=== PATIENT | female | born 1965 | race Caucasian/White ===

== ENCOUNTER 2019-01-23 14:33 | Emergency (ER) | payer BC, SELFPAY ==
[2019-01-23 14:38] VITALS: BP 114/81; PULSE 73; RESP 20; TEMP 36.7; O2SAT 99
--- NOTE | 2019-01-23 15:01 | ED.GENADUL_ITS ---
Discharge Plan Disposition Patient Disposition: HOME Condition: Fair Discharge Details Chief Complaint: Orthopedic Clinical Impression: Distal radius fracture, left, Closed fracture of coccyx Primary Care Provider: [facility],Local ED Provider: [facility] Home Meds and New Rx's Prescriptions: No Action No Known Home Meds RF: 0 Discharge Instructions Instructions: Wrist Fracture in Adults (ED) Additional Instructions: Encourage rest, ice, elevation. Tylenol and/or ibuprofen as needed for discomfort. Please avoid any heavy lifting. Please call orthopedics and/or primary care to discuss referral tomorrow and schedule follow-up appointment. It appears that your wrist will need surgical intervention initially to be completed within the next 1 to 2 weeks per orthopedics recommendations. If you develop new or worsening symptoms please seek care urgently once again. Stand Alone Forms: Work Release Discharge Data Discharge Date/Time-TO BE ENTERED AT DEPARTURE: 01/23/19 16:57 Medical Decision Making <SOLE Martinez - Last Filed: 01/25/19 17:36> Patient provided Tylenol initially after her evaluation. Patient with a left wrist injury with deformity present. X-rays pending. Signed out pending x-ray evaluation. <SOLE Whitfield - Last Filed: 01/23/19 16:52> Care transition to myself from SOLE Ortiz, with chief complaint of left wrist pain and buttock pain. Please see her note. I reviewed the images and patient does have a comminuted left distal radius fracture that appears to be intra-articular. I am also concerned for a coccyx fracture as there is angulation on the lateral view. Still awaiting radiology result. Consult with Dr. Ugalde with orthopedics regarding the patient's wrist. He advised the patient will need surgical intervention and advised splinting her for the time being with plan to follow-up. Patient was splinted with plaster. Capillary refill remains intact. She feels comfortable in the splint. We discussed pain management techniques and she declines any prescription analgesics at this time and prefers Tylenol and ibuprofen. We will give her a sling to help with elevation. Encouraged floyd. She will contact primary care and orthopedics tomorrow to schedule follow-up appointment. Advise she seek care urgently once again with any new or worsening symptoms. All other questions and concerns were addressed and she is in agreement this plan. We will give work note at patient's request. HPI <SOLE Martinez - Last Filed: 01/25/19 17:36> General Date/Time Provider Initiated Documentation: 01/23/19 14:36 . HPI Narrative: Patient presents after a fall off of a porch down 2 steps to a stone path. Patient denies striking head neck or back. Patient denies loss of consciousness, headache, vision change, blurred vision, tinnitus. Patient did report initial dizziness and nausea. Dizziness has resolved, nausea mildly persist. Patient is not concerned with head injury. Has no evidence of head trauma. Patient primarily presents with a concern of left wrist pain and deformity. Pain with any range of motion of left wrist. Patient denies chest pain, difficulty breathing or shortness of breath or wheezing. No pain with deep breathing. Denies abdominal pain. Patient does report mild buttocks te nderness and pain as she fell striking the left side of her buttocks. Patient denies specific hip pain. Full range of motion of legs. Able to ambulate without difficulty. No limping gait. No numbness, tingling or weakness of arms or legs. No other concerns or complaints at this time. Injury occurred approximately 1-2 o'clock this afternoon. Related Data Home Medications Medication Instructions Recorded Confirmed Unknown [No Known Home Meds] 01/23/19 01/23/19 Allergies Allergy/AdvReac Type Severity Reaction Status Date / Time Penicillins Allergy Skin Rash Unverified 01/23/19 14:40 General Stated Complaint: Orthopedic DILLON: 3 Review of Systems <SOLE Martinez - Last Filed: 01/25/19 17:36> Review of Systems Narrative: CONSTITUTIONAL: The patient denies fevers, chills. EYES: Denies vision changes, blurry vision, or eye pain. ENT: Denies hearing changes, tinnitus, vertigo, sore throat. CARDIAC: Denies chest pain, SOB. RESPIRATORY: Denies cough, sputum. Denies difficulty breathing. GASTROINTESTINAL: Denies abdominal pain, changes in bowel, vomiting or nausea. GENITOURINARY: Denies dysuria, or frequency of urination. MUSCULOSKELETAL: Wrist pain, no changes in gait changes. NEUROLOGIC: Denies headaches, Denies focal weakness. Denies numbness. INTEGUMENT: Denies rashes. PSYCHIATRIC: Denies behavior changes. Denies anxiety or depression. ENDOCRINOLOGY: Denies fatigue. PSYCHIATRY: Denies depression, agitation or anxiety PFS <SOLE Martinez - Last Filed: 01/25/19 17:36> Social History Smoking/Tobacco Use Status: Current every day Tobacco Type: cigarettes Alcohol Intake: current Alcohol Intake frequency: holidays/special occasions only Substance use type: does not use Do you feel safe at home: Yes Do you feel safe in your relationship?: Yes Exam <SOLE Martinez - Last Filed: 01/25/19 17:36> Narrative Exam Narrative: CONST: Healthy appearing patient, in no acute distress. Well hydrated. Alert and alert. HENMT: Head nomocephalic, normal to inspection. Atraumatic. Hearing grossly normal. EYES: General normal appearance. Alignment normal. Eyelids normal. Conjunctiva normal. NECK: Normal visual inspection. FROM. Trachea midline. No Midline tenderness. CHEST: Normal insepection of the chest. No pain with palpation to the chest wall. RESP: Normal respiratory effort. Speaking full sentences. No cough. No audible wheezing. No retractions. CARDIO: No JVD. Neck back spine; no midline tenderness. No bony pain with palpation. No step- offs. MUSCULOSKELETAL: Normal Gait. No left shoulder pain with palpation of the c lavicle tenderness. No humeral tenderness. Minimal elbow tenderness with palpation. Mild pain with supination pronation of left elbow. No significant forearm tenderness. Obvious wrist deformity noted on the left with pain with light palpation through the radius and the ulnar. Mild dorsal hand pain with palpation. Radial pulse intact. Cap refill normal. Intact sensation distally. Straight leg raise intact bilaterally. No pain with flexion extension or internal/external rotation of hips bilaterally. No palpable hip tenderness. No femoral, knee, adrian, ankle or foot tenderness bilaterally. Abrasion noted to the lateral malleolus of the left ankle. Full range of motion and strength intact of lower legs. SKIN: Normal. Dry. No rashes. NEURO: Alert and awake. Speech clear. PSYCH: Normal affect. Cooperative. Course <SOLE Martinez - Last Filed: 01/25/19 17:36> Vital Signs Vital signs: Vital Signs Temperature 36.7 C 01/23/19 14:38 Pulse 73 01/23/19 14:38 Respiratory Rate 20 01/23/19 14:38 Blood Pressure 114/81 01/23/19 14:38 Pulse Oximetry 99 01/23/19 14:38 Temperature 36.7 C 01/23/19 14:38 Temperature Source Temporal Artery Scan 01/23/19 14:38 Pulse 73 01/23/19 14:38 Respiratory Rate 20 01/23/19 14:38 Respiratory Effort Non-Labored 01/23/19 14:50 Blood Pressure 114/81 01/23/19 14:38 Blood Pressure Position Sitting 01/23/19 14:38 Pulse Oximetry 99 01/23/19 14:38 Oxygen Delivery Method Room Air 01/23/19 14:38 Oxygen Flow Rate 0 01/23/19 14:38 Pain Level 8 01/23/19 14:44 Sign Out <SOLE Martinez - Last Filed: 01/25/19 17:36> Sign Out Data: Sign Out Comment: Send a pending x-ray evaluation of left arm and right pelvis Last updated by Genesis Arreola PA at 01/23/19 16:06
[2019-01-23] MEDS: Acetaminophen 500 MG TAB 1000 MG PO (15:02)
--- NOTE | 2019-01-23 16:01 | DI.RAD_ITS ---
EXAM: XR PELVIS AP INDICATION: pain, fall. COMPARISON: XR SACRUM COCCYX from 01/23/2019 TECHNIQUE: 2D digital imaging was performed. FINDINGS: There is a question regarding a subtle cortical discontinuity in the lower sacrum. No acutely displa matheus fractures are appreciated. There is no dislocation. IMPRESSION: Question subtle cortical discontinuity at the lower sacrum. This could be related to artifact from s uperimposition of structures. Could not exclude a small minimally displaced fracture. Correlation w ith the patient's symptomatology and if indicated a pelvic CT could be considered.
--- NOTE | 2019-01-23 16:01 | DI.RAD_ITS ---
EXAM: XR HAND LT COMPLETE INDICATION: pain, fall. COMPARISON: No exams were available for comparison TECHNIQUE: 2D digital imaging was performed. FINDINGS: Again noted is a fracture of the distal radius previously described. There is no evidence of an acut e fracture or dislocation involving the hand. IMPRESSION:
--- NOTE | 2019-01-23 16:01 | DI.RAD_ITS ---
EXAM: XR SACRUM COCCYX INDICATION: pain, fall. COMPARISON: XR PELVIS AP from 01/23/2019 TECHNIQUE: 2D digital imaging was performed. FINDINGS: Evaluation of the sacrum and coccyx reveals degenerative changes involving the lumbar vertebra. There is a subtle cortical discontinuity at the lower sacrum. No other acutely displaced fractures are beverley reciated. There is no dislocation. IMPRESSION: Summary: No cortical discontinuity.
--- NOTE | 2019-01-23 16:01 | DI.RAD_ITS ---
EXAM: XR ELBOW LT COMPLETE INDICATION: pain, injury. COMPARISON: No exams were available for comparison TECHNIQUE: 2D digital imaging was performed. FINDINGS: The bony structures are normal. The soft tissues are unremarkable. IMPRESSION: No acute abnormality is identified.
--- NOTE | 2019-01-23 16:02 | DI.RAD_ITS ---
EXAM: XR WRIST LT COMPLETE INDICATION: pain, injury. COMPARISON: No exams were available for comparison TECHNIQUE: 2D digital imaging was performed. FINDINGS: There is a comminuted overriding and intra-articular fracture of the distal radius with mild displace ment of the fracture fragments and volar angulation of the distal fragments of the hand. There is no evidence of a dislocation. Osteoarthritic changes involving the 1st carpal/metacarpal joint are nellie ntified. No other acutely displaced fractures are appreciated. There is no evidence of a dislocation . IMPRESSION:
[2019-01-23 16:52] VITALS: BP 125/75; PULSE 95
[2019-01-23 17:00] VITALS: BP 125/75; PULSE 95; RESP 20; O2SAT 99
--- NOTE | 2019-01-23 17:08 | DI.VRAD_ITS ---
EXAM: XR Sacrum and Coccyx, 2 or More Views EXAM DATE/TIME: 01/23/2019 4:02 PM CLINICAL HISTORY: 53 years old, female; Other: Pain fall TECHNIQUE: Imaging protocol: XR of the sacrum and coccyx, 2 or more views. COMPARISON: No relevant prior studies available. FINDINGS: Bones/joints: Mild degenerative changes of the lumbosacral vertebra. Very subtle cortical discontinuity at the lower sacrum on image 1 series 148. No other acutely displaced fractures are appreciated. No dislocation. Soft tissues: No acute soft tissue findings. Vasculature: There are numerous benign phleboliths in the pelvis. IMPRESSION: Very subtle cortical discontinuity at the lower sacrum , as detailed above. This could be related to artifact from superimposition of structures, however a small minimally displaced fracture is difficult to exclude. Consider correlation with point tenderness at this region or further evaluation with noncontrast pelvic CT if clinically warranted. Dictated and Authenticated by: Jayy Paniagua MD. Ordering:RITA Hurtado MD
--- NOTE | 2019-01-23 17:09 | DI.VRAD_ITS ---
EXAM: XR Left Elbow EXAM DATE/TIME: 01/23/2019 4:01 PM CLINICAL HISTORY: 53 years old, female; Other: Pain, injury TECHNIQUE: Imaging protocol: XR Left elbow. Views: 3 or more views. COMPARISON: No relevant prior studies available. FINDINGS: Bones/joints: Normal. Soft tissues: Normal. IMPRESSION: No acute findings. Dictated and Authenticated by: Jayy Paniagua MD. Ordering:RITA Hurtado MD
--- NOTE | 2019-01-23 17:11 | DI.VRAD_ITS ---
EXAM: XR Pelvis EXAM DATE/TIME: 01/23/2019 4:01 PM CLINICAL HISTORY: 53 years old, female; Other: Pain, fall TECHNIQUE: Imaging protocol: XR pelvis. Views: 1 or 2 view. COMPARISON: No relevant prior studies available. FINDINGS: Bones/joints: 1.3 cm lytic lesion with well-defined sclerotic borders at the left femoral head/neck favors a benign lesion. No acutely displaced fracture or dislocation is appreciated in this examination. Soft tissues: No significant soft tissue abnormality. Vasculature: There are numerous benign phleboliths in the pelvis. IMPRESSION: 1. Negative for acute skeletal pathology. 2. Please review the dedicated sacral films performed on the same date for other important findings. Dictated and Authenticated by: Jayy Paniagua MD. Ordering:RITA Hurtado MD
--- NOTE | 2019-01-23 17:15 | DI.VRAD_ITS ---
EXAM: XR Left Hand EXAM DATE/TIME: 01/23/2019 4:01 PM CLINICAL HISTORY: 53 years old, female; Other: Pain, fall TECHNIQUE: Imaging protocol: XR Left hand. Views: 3 or more views. COMPARISON: No relevant prior studies available. FINDINGS: Bones/joints: There is a comminuted, overriding, and intra-articular fracture of the distal radius with mild distraction of fracture fragments and volar angulation of the distal fragments and hand. No dislocation. Severe osteoarthritis of the first carpometacarpal joint, as manifested by significantly decreased joint space, subchondral sclerosis, and marginal osteophyte formation. No other acutely displaced fractures are appreciated. No dislocation. Soft tissues: There is soft tissue swelling about the wrist. IMPRESSION: Combination [place] and reverse Shoemaker fracture, as detailed above. Dictated and Authenticated by: Jayy Paniagua MD. Ordering:RITA Hurtado MD
--- NOTE | 2019-01-23 17:41 | DI.VRAD_ITS ---
EXAM: XR Left Wrist EXAM DATE/TIME: 01/23/2019 5:27 PM CLINICAL HISTORY: 53 years old, female; Other: Pain, injury TECHNIQUE: Imaging protocol: XR Left wrist. Views: 3 or more views. COMPARISON: No relevant prior studies available. FINDINGS: Bones/joints: There is a comminuted, overriding, and intra-articular fracture of the distal radius with mild distraction of fracture fragments and volar angulation of the distal fragments and hand. No dislocation. Severe osteoarthritis of the first carpometacarpal joint, as manifested by significantly decreased joint space, subchondral sclerosis, and marginal osteophyte formation. No other acutely displaced fractures are appreciated. No dislocation. Soft tissues: There is soft tissue swelling about the wrist. IMPRESSION: Combination [place] and reverse Shoemaker fracture, as detailed above. Dictated and Authenticated by: Jayy Paniagua MD. Ordering:RITA Hurtado MD
--- NOTE | 2019-02-11 08:49 | OCONE_ITS ---
Date of service: 01/23/19 Time of Service: 15:49 History of Present Illness History of Present Illness Chief Complaint: Left wrist fracture Narrative: Rima is a 53-year-old who fell off of a porch. She landed on outstretched left hand on onto her bottom. She initially has some nausea and vomiting. She had notable pain and felt something was not right with her left wrist. She presented to the emergency department he was diagnosed with a left wrist fracture. She denies any numbness or tingling. Her pain is currently controlled. She denies any loss of consciousness. She may have had some dizziness after the fall but no dizziness prior to the fall. She denies any loss of consciousness. She denies any numbness or tingling. Consult Reason Left wrist fracture Assessment and Plan Assessment and plan (1) Distal radius fracture, left: Status: Acute Assessment and plan: Rima is a 53-year-old who suffered a fall onto an outstretched left hand. She suffered a comminuted, intra-articular distal radius fracture. She works with her hands on a daily basis at [employer]. Given her young age, labor-intensive work, and the nature of the fracture, recommend operative fixation. I did discuss the role of a closed reduction and casting but given the intra-articular nature of the fracture and its displacement would recommend fixation. I reviewed the risk to include bleeding, infection, pain, stiffness, damage to nerves and vessels, damage to muscle tendons. She is not in this area and would like to try to have care closer to home. She does need to contact an local orthopedic provider soon as possible as these preferably get fixed within 2 weeks. Qualifiers: Encounter type: initial encounter Fracture type: closed Fracture morphology: other intra-articular Qualified Code(s): S52.572A - Other intraarticular fracture of lower end of left radius, initial encounter for closed fracture Review of Systems Review of Systems ROS Unobtainable: All systems reviewed & are unremarkable except as noted in HPI and below [facility] Medical History History of postoperative nausea and vomiting (Acute) Surgical History History of mandibular surgery (Acute) Broken jaw 1974 History of surgery (Acute) Bronchoscopy Hx of wisdom tooth extraction (Acute) Social History Smoking/Tobacco Use Status: Current every day Tobacco Type: cigarettes Years smoked: 25 Alcohol Intake: current Alcohol Intake frequency: holidays/special occasions only Drug use: Never Substance use type: does not use Current gender identity: female Do you feel safe at home: Yes Do you feel safe in your relationship?: Yes Exam Narrative Exam Narrative: Evaluation of left wrist shows some swelling and volar displacement of the wrist by a slight amount. There is some very mild ecchymosis. Sensation intact light touch over the medial radial, ulnar nerve. Palpable radial pulse. No pain with elbow range of motion. Intact AIN, PIN, ulnar nerve function. Results Last Vital Signs Temp 36.7 C 01/23/19 14:38 Pulse 95 H 01/23/19 17:00 Resp 20 01/23/19 17:00 BP 125/75 01/23/19 17:00 Pulse Ox 99 01/23/19 17:00 Imaging Imaging Studies: X-ray of the left wrist shows a volarly displaced intra- articular distal radius fracture with a separate radial styloid fragment
== END 2019-01-23 16:57 | disposition home or self-care (01) ==
PROVIDERS: Emergency Provider Physician Assistant
DX: S52.572A Other intraarticular fracture of lower end of left radius, initial encounter for closed fracture (principal); S32.2XXA Fracture of coccyx, initial encounter for closed fracture; R11.0 Nausea; W10.8XXA Fall (on) (from) other stairs and steps, initial encounter
CPT/HCPCS: 29125; 99253; 99284; 72170; 72220; 73080; 73110; 73130; 99282; L3650

== ENCOUNTER 2019-02-05 13:08 | Outpatient (CLI) | payer BC, SELFPAY ==
--- NOTE | 2019-02-05 12:56 | DI.RAD_ITS ---
EXAM: XR WRIST LT COMPLETE CLINICAL HISTORY: F/U FRACTURE. TECHNIQUE: 2D digital imaging was performed. COMPARISON: XR WRIST LT COMPLETE from 01/23/2019 FINDINGS: BONES: There has been no change in alignment of the comminuted, intra-articular fracture of the dista l left radius since 01/23/2019. JOINTS: Severe degenerative changes are again seen at the 1st carpometacarpal joint. SOFT TISSUE: There is soft tissue swelling about the wrist. The patient's wrist is in a cast. IMPRESSION: Stable distal left radial fracture.
== END 2019-02-05 13:28 ==
PROVIDERS: Visit Provider Student in an Organized Health Care Education/Training Program
DX: S52.572D Other intraarticular fracture of lower end of left radius, subsequent encounter for closed fracture with routine healing (principal); M18.12 Unilateral primary osteoarthritis of first carpometacarpal joint, left hand
CPT/HCPCS: 73110

== ENCOUNTER 2019-02-07 06:20 | Day surgery (SDC) | payer BC, SELFPAY ==
[2019-02-07] VITALS (7 sets, daily range): BP systolic 102–114; BP diastolic 52–93; PULSE 63–81; RESP 9–19; TEMP 36.3–36.7; O2SAT 94–97
[2019-02-07] MEDS: Lactated Ringers 1,000 ML 80 ML IV (07:00)
--- NOTE | 2019-02-07 07:12 | DI.RAD_ITS ---
EXAM: XR WRIST LT LIMITED INDICATION: LEFT DISTAL RADIUS FX. COMPARISON: XR WRIST LT COMPLETE from 02/05/2019 TECHNIQUE: 2D digital imaging was performed. FINDINGS: The patient is now open reduction and internal fixation of the distal left radial fracture. The alig nment appears near anatomic. FLUORO TIME: 57 sec, 0.3950 mGy
--- NOTE | 2019-02-07 07:23 | PDOC.DSDIS_ITS ---
Discharge Plan Disposition Patient Disposition: HOME Condition: Good Discharge Details Reason For Visit: Left distal radius fracture Attending Provider: Sinan Ugalde Primary Care Provider: ,Local Home Meds and New Rx's Prescriptions: New acetaminophen 500 mg tablet 500 mg PO Q6H PRN (Reason: pain) Qty: 60 RF: 2 ibuprofen 600 mg tablet 600 mg PO TID PRN (Reason: pain) Qty: 60 RF: 2 hydrocodone-acetaminophen [Vicodin] 5-300 mg tablet 1 tab PO Q6H PRN (Reason: post-operative pain) Qty: 12 RF: 0 Discharge Instructions Additional Instructions: Wrist Fracture Fixation Discharge Instructions Activity: You should keep the hand/wrist elevated as much as possible for the first few days. You may use the other fingers as tolerated but avoid trying to do too much too soon. You may perform light activities with the splint in place. Dressing/Cast: Your splint should stay in place at all times. Do NOT get it wet. You may loosen the MALI wrap if you feel it is too tight and then rewrap more loosely. Medications: - You should take Tylenol and Ibuprofen for baseline pain control. - You have been prescribed a stronger pain medication, Hydrocodone (Vicodin), for breakthrough pain. - You may apply ice over the wrist, just double bag so it doesn't get wet. Follow-up: 10-14 days Referrals: Sinan Ugalde MD [ [facility] STAFF PHYSICIAN] - Equipment/Supplies: Sling Activity:: Elevate Remove Dressings/Wound Care:: Do Not Remove Shower/Bathe:: Cover Diet:: As Tolerated Discharge Orders Discharge Orders: Discharge Order (Routine); Ordered 02/07/19 Ordered By: Sophie Panda DS: Diagnosis Discharge Diagnosis (1) Distal radius fracture, left: Status: Acute
[2019-02-07] MEDS: ceFAZolin 2 GM/50 ML BAG IVPB (07:40)
--- NOTE | 2019-02-08 22:00 | ROE_ITS ---
Date of service: 02/07/19 Time of Service: 09:00 Operative Note Operative Note DATE OF PROCEDURE: 02/07/19 PRE-OP DIAGNOSIS: Left distal radius intra-articular fracture POST-OP DIAGNOSIS: same PROCEDURE: Open Reduction and Internal Fixation of Left Distal Radius, intra- articular 2 ports SURGEON: Sinan Ugalde [employer]CH[employer] ENGINEERING [employer]OP: Verónica Rivera ANESTHESIA: GETA and regional ESTIMATED BLOOD LOSS: 10 PATHOLOGY: none sent TOURNIQUET TIME: 44 COMPLICATIONS: None Patient was transported to: PACU Patient's condition: stable Indications: Rima is a 53-year-old female who I have seen for a left distal radius fracture. Given the deformity, displacement, fracture pattern, and effect on daily function, I recommended surgical fixation. I reviewed the risk of the procedure to include bleeding, infection co-pay, stiffness, damage to nerves and vessels, damage to muscles and tendons, malunion, nonunion, hardware prominence, tendon rupture, need for repeat procedures. Despite these risks, the patient elected to proceed. Findings: There is a distal radius fracture which had 2 parts, a primary distal radius section and a secondary radial styloid section. It was reduced and fixed with a Synthes volar locking plate. Procedure Description: Rima was greeted in the preoperative holding area. The correct patient and site was confirmed and marked. The history and physical was updated. The consent was reviewed the patient and signed. The patient was taken to the operating room and placed in the supine position. All bony problems were well-padded. The left arm was placed onto a radiolucent hand table. A nonsterile tourniquet was placed high up on the left arm. Prophylactic antibiotics in the form of cefazolin were administered. The left arm was prepped with ChloraPrep and draped in a standard fashion. A timeout was performed for safe surgery. A standard longitudinal incision was made overlying the flexor carpi radialis tendon starting at the distal wrist crease and moving proximally. The skin was incised sharply. The flexor carpi radialis tendon and its sheath is identified. The sheath was opened. The tendon was moved ulnarly in the floor of the sheath was incised. Blunt dissection the flexor pollicis longus muscle belly and tendon were also made radially exposing the pronator quadratus and the distal radius. The printer quadratus was elevated with an ulnar-based flap. This exposed the volar distal radius and the fracture. A ponce elevator was used for full exposure of the volar surface of the distal radius. The primary fracture line was exposed. Using a series of elevators, curettes, and knife, the fracture was fully debrided of any fibrous tissue and callus formation. I used a freer elevator to help mobilize the fragments. There is a large articular block and there was also a radial styloid component. I then performed a closed reduction. Using gentle traction and fracture manipulation, this reduction was held. The radial styloid was held in place with a single K wire to the tip of the styloid into the distal radius. Fluoroscopic images were used to confirm adequate reduction. An appropriately sized Synthes volar locking plate was then placed onto the bony surface of the distal radius. Was then held there with a distal radius clamp sandwiching the plate to the distal segment. A single K wire was placed through the distal end. Fluoroscopy was once again used to confirm appropriate positioning of the plate on the distal radius. A reduction K wire was placed into the slotted hole on the shaft but not tightened all the way to allow for manipulation of the distal segment onto the proximal shaft. A single nonlocking screw was placed to the distal portion of the plate securing the plate against the bone of the distal radial metaphysis. Once again, the plate was evaluated to make sure it was aligned appropriately. The single screw was also checked to make sure it was in appropriate positioning for trajectory of future screws. The remainder of the screws within the volar locking plate were filled with locking screws. These were made sure not to penetrate the dorsal cortex. Once these were applied the proximal portion of the plate was further reduced down onto the shaft, which further reduce the distal segment. This was held in position with a tightened reduction K wire. Fluoroscopy was then used against confirm appropriate reduction. Nonlocking screws were placed within the 3 shaft screw holes. Final x-rays were obtained which demonstrated adequate reduction and positioning of hardware. The dorsal sunrise view was also obtained to ensure correct sizing of screws. The wound was then thoroughly irrigated. The pronator quadratus was reapproximated with a 0 Vicryl. The tourniquet was released and there was no notable vascular injury. The fingers were warm and well-perfused. The deep dermal layer was closed with a 2-0 Vicryl. The skin was closed with 4-0 nylon. The wound was dressed with Xeroform, 4 x 4's, web roll. A short arm splint was applied. At the end the case all counts are correct. Patient was transferred back to the PACU in stable condition.
== END 2019-02-07 10:50 | disposition home or self-care (01) ==
PROVIDERS: Visit Provider Student in an Organized Health Care Education/Training Program
PROC: (CPT 25608; principal; 2019-02-07 07:30)
DX: S52.572A Other intraarticular fracture of lower end of left radius, initial encounter for closed fracture (principal); W17.89XA Other fall from one level to another, initial encounter
CPT/HCPCS: 25608; C1713; 73100; J0131; J0690; J1100; J1200; J2250; J2405; J3010; L3650

== ENCOUNTER 2019-02-19 11:39 | Outpatient (CLI) | payer BC, SELFPAY ==
--- NOTE | 2019-02-19 11:25 | DI.RAD_ITS ---
EXAM: XR WRIST LT COMPLETE INDICATION: 1st post op. COMPARISON: XR WRIST LT COMPLETE from 02/05/2019 XR WRIST LT LIMITED from 02/07/2019 TECHNIQUE: 2D digital imaging was performed. FINDINGS: Five views were obtained. Previously described fracture of the distal radius with plate and screw fi xation in place is again noted with no gross interval change alignment fracture fragments comparison with intraoperative films of February 07. IMPRESSION:
--- NOTE | 2019-02-19 12:00 | DI.RAD_ITS ---
EXAM: XR WRIST RT LIMITED INDICATION: obtained to compare anatomy to left wrist. COMPARISON: XR WRIST LT COMPLETE from 02/19/2019 TECHNIQUE: 2D digital imaging was performed. FINDINGS: Lateral view right wrist was obtained. Degenerative changes of the carpus noted. Normal carrying ang le of the wrist.
== END 2019-02-19 11:59 ==
PROVIDERS: Visit Provider Student in an Organized Health Care Education/Training Program
DX: S52.572D Other intraarticular fracture of lower end of left radius, subsequent encounter for closed fracture with routine healing (principal); M19.031 Primary osteoarthritis, right wrist
CPT/HCPCS: 73100; 73110

== ENCOUNTER 2019-03-05 13:58 | Outpatient (CLI) | payer BC, SELFPAY ==
--- NOTE | 2019-03-05 13:57 | DI.RAD_ITS ---
EXAM: XR WRIST LT COMPLETE INDICATION: f/u of left distal radius fracture. COMPARISON: XR WRIST LT COMPLETE from 02/19/2019 XR WRIST RT LIMITED from 02/19/2019 TECHNIQUE: 2D digital imaging was performed. FINDINGS: There is again seen a side plate and screws transfixing the distal left radial fracture. There has b een no change in alignment of the fracture or the orthopedic components. Advanced degenerative gutierrez es are seen at the 1st carpometacarpal joint. The soft tissues are unremarkable. IMPRESSION: Stable distal left radial fracture.
== END 2019-03-05 14:18 ==
PROVIDERS: Visit Provider Physician Assistant
DX: S52.572D Other intraarticular fracture of lower end of left radius, subsequent encounter for closed fracture with routine healing (principal)
CPT/HCPCS: 73110

== ENCOUNTER 2019-03-05 17:36 | Outpatient (CLI) | payer BC, SELFPAY ==
--- NOTE | 2019-03-05 16:00 | DI.CT_ITS ---
EXAM: CT UPPER EXTREMITY LT WO CLINICAL HISTORY: ORIF of left distal radius; carpal bone alignment TECHNIQUE: The exam was performed according to the usual protocol without contrast. COMPARISON: XR WRIST LT COMPLETE from 03/05/2019 FINDINGS: There is a comminuted intra-articular fracture of the distal radius. There are screws and a sideplat e seen transfixing the distal radial fracture. There is artifact from the orthopedic hardware noted. There is marked of volar tilt of the lunate. There does appear to be mild anterior subluxation of the capitate relative to the lunate. No other fracture is appreciated. There are marked degenerativ e changes seen at the 1st carpometacarpal joint. There is soft tissue swelling about the wrist. IMPRESSION: 1. Comminuted intra-articular fracture of the distal radius with internal fixation. 2. Marked volar tilt of the lunate with anterior subluxation of the capitate relative to the lunate. 3. Marked degenerative changes at the 1st carpometacarpal joint.
== END 2019-03-05 17:56 ==
PROVIDERS: Visit Provider Physician Assistant
DX: S52.572D Other intraarticular fracture of lower end of left radius, subsequent encounter for closed fracture with routine healing (principal)
CPT/HCPCS: 73200

== ENCOUNTER 2019-03-20 16:56 | Observation (INO) | payer BC, SELFPAY ==
[2019-03-20] VITALS (7 sets, daily range): BP systolic 104–147; BP diastolic 71–88; PULSE 64–87; RESP 12–16; TEMP 36.3–36.8; O2SAT 96–98
--- NOTE | 2019-03-20 08:01 | W.PM.DSUDISC ---
Discharge Plan Disposition Patient Disposition: HOME Condition: Good Discharge Details Reason For Visit: (L) CARPAL MALALIGHNMENT Attending Provider: Sinan Ugalde Primary Care Provider: ,Local Home Meds and New Rx's Prescriptions: New hydrocodone-acetaminophen 5-325 mg tablet 1 tab PO Q8H PRN PRN (Reason: pain) Qty: 3 RF: 0 Continued acetaminophen 500 mg tablet 500 mg PO Q6H PRN (Reason: pain) Qty: 60 RF: 2 ibuprofen 600 mg tablet 600 mg PO TID PRN (Reason: pain) Qty: 60 RF: 2 Discharge Instructions Additional Instructions: Activity: You should keep the hand/wrist elevated as much as possible for the first few days. You may use the other fingers as tolerated but avoid trying to do too much too soon. You may perform light activities with the splint in place. Dressing/Cast: Your splint should stay in place at all times. Do NOT get it wet. You may loosen the MALI wrap if you feel it is too tight and then rewrap more loosely. Medications: - You should take Tylenol and Ibuprofen for baseline pain control. - You have been prescribed a stronger pain medication, Hydrocodone, for breakthrough pain. - You may apply ice over the wrist, just double bag so it doesn't get wet. 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
[2019-03-20] MEDS: Lactated Ringers 1,000 ML 80 ML IV (13:23)
[2019-03-20] MEDS: ceFAZolin 2 GM/50 ML BAG IVPB (14:23)
--- NOTE | 2019-03-20 14:50 | DI.RAD_ITS ---
EXAM: XR WRIST LT LIMITED CLINICAL HISTORY: LEFT WRIST FX. TECHNIQUE: 2D and realtime digital imaging was performed. COMPARISON: XR WRIST LT COMPLETE from 03/05/2019 FINDINGS: Fluoroscopy was utilized by Dr. Ugalde during the percutaneous pinning of the carpal bones. The dis haley aspect of a sideplate and screws are again seen in the distal radius. Degenerative changes are s een at the carpometacarpal joint. Please refer to the procedure report for complete details. FLUORO time: 5.22 seconds
[2019-03-20] MEDS: Bupivacaine 0.5% Pres-Free 30 ML VIAL (16:15)
[2019-03-20] MEDS: fentaNYL 100 MCG/2 ML VIAL IVP (17:05)
[2019-03-20] MEDS: Ondansetron 4 MG/2 ML VIAL IVP (17:10)
[2019-03-20] MEDS: HYDROcodone 5/Acetaminophen 325 TAB PO (18:02)
--- NOTE | 2019-03-21 15:03 | ROE_ITS ---
DATE OF SURGERY: March 20, 2019 DIAGNOSIS: Left carpal instability. POSTOPERATIVE DIAGNOSIS: Left carpal instability with rupture of multiple carpal ligaments. SURGEON: Sinan Ugalde M.D. [employer] HANDSTITCHING MACHINE: Adebayo Jennings P.A.-C. SURGERY: Open reduction and pinning of Lunotriquetral and triquetral-capitate with ligament repair. ANESTHESIA: General. ESTIMATED BLOOD LOSS: Minimal. COMPLICATIONS: None. DISPOSITION: The patient was awakened from anesthesia and taken to the PACU in stable condition. INDICATIONS FOR PROCEDURE: Rima is a 53-year-old whom I had seen previously for a comminuted, intra-articular left distal radius fracture. This was treated with initial volar plating. However, she had significant pain and limitation of motion with a several flexed and palmarly translated carpus. We tried to treat this conservatively but she continued to have limitations. Given the significant abnormalities from the x-rays and a discussion with other colleagues, it was decided that it would be worthwhile to attempt an open reduction and fixation of the carpus. I discussed the technical features of this case. I reviewed the risks to include bleeding, infection, pain, stiffness, continued malalignment, the need for repeat procedures, pin site infection, damage to nerves and vessels, damage to muscles and tendons. Despite these risks, she elected to proceed. OPERATIVE PROCEDURE: Rima was greeted in the preoperative holding area. Identity was confirmed and the correct side was identified and marked. The consent was reviewed with the patient and signed. History and physical was updated. She was taken to the operating room and placed in a supine position. All bony prominences were well-padded. A nonsterile tourniquet was placed high up onto the left arm. Prophylactic antibiotic in the form of Cephazolin was administered. A general anesthesia was given. Time-out was performed for safe surgery. The left arm was prepped with ChloraPrep and draped in a standard fashion. The proposed surgical site was injected with 0.5% Bupivacaine. The limb was exsanguinated and tourniquet was elevated to 250 mmHg where it stayed for 90 minutes. A longitudinal dorsal incision was then made overlying the 3rd and 4th compartments. This was taken down sharply through the skin. The extensor retinaculum was elevated through the 3rd compartment. The extensor pollicis longus was removed from the compartment and Marianne's tubercle was removed. Subperiosteal elevation of the extensor compartments was then performed all the way around to the most radial aspect of the radius and towards the TFCC and the ulnar aspect of the radius. In doing this, we did see that two screws were prominent. The most radial screw was just barely through the cortex of this radius and had no impingement on any soft tissues. A second screw, which was slightly more ulnar was half in bone and half out of bone. There was some slight prominence to this radial aspect of the screw. I therefore took a josefa and smoothed down these surfaces, and I did not want to approach from both palmar and dorsal sides. This provided a smooth surface, flush with the surrounding bone. This was thoroughly irrigated, trying to remove all metal debris from this area. We then proceeded with the procedure. The extensor retinaculum was fully split and the tendons were retracted ulnarly and radially. This exposed the dorsal aspect of the wrist. There was notable synovitis in this area. There was a hemosiderin stained synovitis which was removed with a rongeur. The radial triquetral and the intercarpal ligaments appeared to be intact. However, there was notable synovitis between these. An incision was made into the dorsum of the wrist, splitting this ligament and elevating it radially. This exposed the space in the carpal joint. The capitate was notably palmarly translated. The lunate was also severely flexed. There was no notable Lunotriquetral ligament. It was easily penetrated with the [place] between the lunate and the triquetrum. The scapholunate ligament dorsally did appear to be intact, although maybe slightly stretched. There was also no apparent attachment of any radiolunate ligaments. Both the lunate and the triquetrum were relatively disconnected from each other and the radius. The synovitis was removed. A K-wire was placed into the lunate and served as a diane stick. When the lunate extended, the capitate did move back onto the lunate. However, it did stay slightly forward flexed. There was almost a translational instability of the capitate. However, it was much improved. With the lunate held in this position, range of motion was actually much-improved. Therefore, I placed a K-wire from the triquetrum into the lunate. This seemed to help improve the position of the wrist but it still wanted to translate forward. Therefore, I placed another K-wire from the triquetrum into the capitate and an additional K-wire from the triquetrum into the lunate. The diane stick K-wire was removed. Range of motion was tested and the appearance of the hand on the x-ray appeared to be approved with the lunate in a more natural position. The capitate was still slightly palmarly translated but was resting better in the lunate fossa. I then performed a repair of the dorsal ligaments. There was some ligamentous material seen between the lunate and the triquetrum which was sewn together with a # 2-0 FiberWire. Similarly, I tried to reincorporate any remnant ligament between the radius and the scaphoid and the radius and the lunate and the dorsum of the triquetrum. The incised dorsal ligaments were then repaired with an 0- Vicryl. I tacked down this ligament to the capitate as well on the dorsal aspect. The wound was then thoroughly irrigated. Additional 0.5% Bupivacaine was injected. The extensor retinaculum was reapproximated with a 0-Vicryl. The deep skin was closed with 2-0 Vicryl. The tourniquet was released and there was no significant bleeding. The skin was closed with 4-0 Nylon. Dressing with Xeroform gauze, 4 x 4's, Webril and a short-armed splint was then applied. At the end of the case, all counts were correct. X-rays were saved in the C- Arm. She was transferred to PACU in stable condition.
== END 2019-03-20 19:10 | disposition home or self-care (01) ==
LOC: SUR 17:22 → MS 17:37
PROVIDERS: Admitting Provider Student in an Organized Health Care Education/Training Program; Visit Provider Student in an Organized Health Care Education/Training Program
PROC: 0RQR0ZZ Repair Left Carpal Joint, Open Approach (ICD-10-PCS; CPT 25320; principal; 2019-03-20 14:30)
DX: M25.332 Other instability, left wrist (principal); S63.392A Traumatic rupture of other ligament of left wrist, initial encounter; S52.502A Unspecified fracture of the lower end of left radius, initial encounter for closed fracture; X58.XXXA Exposure to other specified factors, initial encounter; F17.210 Nicotine dependence, cigarettes, uncomplicated; Z23 Encounter for immunization
CPT/HCPCS: 25320; 73100; J0131; J0690; J1100; J1885; J2250; J2405; J3010; L3650

== ENCOUNTER 2019-04-02 11:14 | Outpatient (CLI) | payer BC, SELFPAY ==
--- NOTE | 2019-04-02 11:12 | DI.RAD_ITS ---
EXAM: XR WRIST LT COMPLETE INDICATION: 1ST POST OP. COMPARISON: CT UPPER EXTREMITY LT WO from 03/05/2019 XR WRIST LT LIMITED from 03/20/2019 TECHNIQUE: 2D digital imaging was performed. FINDINGS: Three pins are again seen through the lateral aspect of the carpal bones. A volar fixation plate is also seen.
== END 2019-04-02 11:34 ==
PROVIDERS: Visit Provider Student in an Organized Health Care Education/Training Program
DX: S52.572D Other intraarticular fracture of lower end of left radius, subsequent encounter for closed fracture with routine healing (principal)
CPT/HCPCS: 73110

== ENCOUNTER 2019-05-08 06:16 | Day surgery (SDC) | payer BC, SELFPAY ==
[2019-05-08 06:24] VITALS: BP 126/82; PULSE 77; RESP 16; TEMP 36.6; O2SAT 95
[2019-05-08] MEDS: Lactated Ringers 1,000 ML 80 ML IV (06:52)
--- NOTE | 2019-05-08 07:09 | DI.RAD_ITS ---
EXAM: XR WRIST LT LIMITED CLINICAL HISTORY: Carpal instability of left wrist with volar interc COMPARISON: XR WRIST LT COMPLETE from 04/02/2019 FINDINGS: C-arm fluoroscopy was utilized by Dr. Ugalde during apparent removal of hardware. Please see Dr. Ugalde's procedure note. IMPRESSION: 27 seconds exposure time
--- NOTE | 2019-05-08 07:22 | PDOC.DSDIS_ITS ---
Discharge Plan Disposition Patient Disposition: HOME Condition: Good Discharge Details Reason For Visit: Retained Hardware - Left Wrist Attending Provider: Sinan Ugalde Primary Care Provider: Kelechi Ag Home Meds and New Rx's Prescriptions: Continued acetaminophen 500 mg tablet 500 mg PO Q6H PRN (Reason: pain) Qty: 60 RF: 2 ibuprofen 600 mg tablet 600 mg PO TID PRN (Reason: pain) Qty: 60 RF: 2 Women's Multivitamin 18 mg iron-400 mcg-500 mg Tablet 1 tab PO DAILY RF: 0 cholecalciferol (vitamin D3) [Vitamin D3] 25 mcg (1,000 unit) Tablet 25 mcg PO DAILY RF: 0 Discharge Instructions Additional Instructions: Activity: You should keep the hand elevated as much as possible for the first few days. You may use the other fingers as tolerated but avoid trying to do too much too soon. You may perform light activities with the splint in place. Dressing/Cast: Your splint should stay in place for the first two days. Do NOT get it wet. After two days, you may remove the splint and place bandaids over the pin removal sites. You should wear your black wrist brace at that time. You may remove the brace for hygiene and gentle motion, but otherwise the brace should be on. Occupational Therapy will start after your follow-up visit in 2 weeks. Medications: - You should take Tylenol and Ibuprofen for baseline pain control. 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
[2019-05-08] MEDS: ceFAZolin 2 GM/50 ML BAG IVPB (07:35)
[2019-05-08 08:35] VITALS: BP 96/60; PULSE 57; RESP 16; TEMP 36.4; O2SAT 100
--- NOTE | 2019-05-08 10:27 | ROE_ITS ---
Date of service: 05/08/19 Time of Service: 08:03 Operative Note Operative Note DATE OF PROCEDURE: 05/08/19 PRE-OP DIAGNOSIS: Retained hardware, left wrist POST-OP DIAGNOSIS: same PROCEDURE: Removal of hardware from carpal bones SURGEON: Sinan Ugalde ANESTHESIA: MAC and local ESTIMATED BLOOD LOSS: 10 PATHOLOGY: none sent COMPLICATIONS: None Patient was transported to: same day Patient's condition: stable Indications: I have seen Rima in clinic for a complex distal radius fracture with intercarpal instability. She had pinning of her carpal joint. It is been 6 weeks and is time for the pins removed. Due to the deep location, I recommended to do this in the operating room with sedation. I reviewed the risks of the procedure to include, but not limited to, bleeding, infection, pain, stiffness. Despite these risks, the patient elected to proceed. Findings: There is one pin visible through a natural defect in the skin of about 5 mm. There is some hyperemia but no gross purulence or signs of infection. Procedure Description: Rima was greeted in the preoperative holding area where the correct side was identified and marked. The consent was reviewed with the patient and signed. All questions were answered. Rima was taken back to the operating room. The patient was placed into the supine position on the operating room table with the left arm on an arm board. All bony prominences were well padded. Cefazolin was administered for prophylactic antibiotics. The left arm was then prepped with Betadine. A timeout to confirm correct identity, side and site, procedure, allergies, anesthesia, and medical concerns was performed. There is a defect seen in the ulnar skin of the left wrist with 1 pin visible. Fluoroscopy was used to help localize the other 2 pins. Using this defect in the skin and the ulnar aspect of the wrist I removed 1 pin easily. The other 2 pins were palpable. 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 There was a persistent ooze from the area but no notable vascular injury. The wound was irrigated. The area was injected with 0.25% bupivacaine. The wound was dressed with Xeroform and 4 x 4. The arm is wrapped in web roll and a short arm splint was applied. She tolerated the procedure well. She was transferred back to the same-day surgery area in a stable condition.
== END 2019-05-08 09:20 | disposition home or self-care (01) ==
PROVIDERS: PCP Family Medicine; Visit Provider Student in an Organized Health Care Education/Training Program
PROC: (CPT 20680; principal; 2019-05-08 07:30)
DX: S52.572D Other intraarticular fracture of lower end of left radius, subsequent encounter for closed fracture with routine healing (principal); M25.332 Other instability, left wrist; X58.XXXD Exposure to other specified factors, subsequent encounter
CPT/HCPCS: 20680; 73100; J0690; J1100; J1885; J2250; J2405; J3010

== ENCOUNTER 2019-05-21 13:25 | Outpatient (CLI) | payer BC, SELFPAY ==
--- NOTE | 2019-05-21 13:10 | DI.RAD_ITS ---
EXAM: XR WRIST LT COMP NAVICULAR INDICATION: 1st post op hardware removal. COMPARISON: XR WRIST LT COMPLETE from 04/02/2019 TECHNIQUE: 2D digital imaging was performed. FINDINGS: There is again seen a sideplate and screws transfixing the distal left radial fracture. No change in alignment of the fracture components or the orthopedic hardware is noted. Since the prior examinati on on 04/02/2019, the percutaneous pins have been removed. There is stable alignment of the carpus. Bones are osteopenic. No new fracture or dislocation is seen. There are degenerative changes seen in the wrist, particularly at the 1st carpometacarpal joint. There has been decrease in the soft tis ten swelling about the wrist.
== END 2019-05-21 13:45 ==
PROVIDERS: PCP Family Medicine; Visit Provider Student in an Organized Health Care Education/Training Program
DX: S52.572D Other intraarticular fracture of lower end of left radius, subsequent encounter for closed fracture with routine healing (principal); M85.88 Other specified disorders of bone density and structure, other site
CPT/HCPCS: 73110